=== PATIENT | female | born 1980 | race Caucasian/White ===

== ENCOUNTER 2018-07-14 09:48 | Emergency (ER) | payer SELFPAY ==
[2018-07-14 09:53] VITALS: BP 134/84; PULSE 91; TEMP 100; BMI 34.7
--- NOTE | 2018-07-14 11:09 | PDOC ---
History of Present Illness - General Chief Complaint: Cold Symptoms Stated Complaint: FLU SYMPTOMS Time Seen by Provider: 07/14/18 10:35 History Source: Patient Exam Limitations: Clinical Condition - History of Present Illness Initial Comments: 07/14/18 11:04 Patient with no significant past medical history present with complaint of five- day history of persistent cough, nasal congestion, runny nose, headache, body aches, fever and chills. Patient also reported sore throat. Patient denies nausea, vomiting, dizziness. Patient reports taking [id number] medication with no improvement. Denies any other symptoms Timing/Duration: other (5 days) Past History - Past Medical History Allergies/Adverse Reactions: Allergies Allergy/AdvReac Type Severity Reaction Status Date / Time No Known Allergies Allergy Verified 07/14/18 09:50 Home Medications: Ambulatory Orders Ipratropium [place] 2 spray NS BID PRN #1 spray 07/14/18 Loratadine 10 mg PO DAILY #10 capsule 07/14/18 Methylprednisolone [Medrol Dose Bruno] 4 mg PO ASDIR #21 tablet 07/14/18 COPD: No - Immunization History Immunization Up to Date: Yes - Suicide/Smoking/Psychosocial Hx Smoking History: Never smoked Hx Alcohol Use: No Drug/Substance Use Hx: No Review of Systems - Review of Systems Able to Perform ROS?: Yes Is the patient limited Greek proficient: No Constitutional: Yes: Chills, Fever, Malaise HEENTM: Yes: Symptoms Reported, See HPI, Nose Congestion, Throat Pain. No: Eye Pain, Blurred Vision, Tearing, Recent change in vision, Double Vision, Cataracts , Ear Pain, Ocular Prothesis, Ear Discharge, Nose Pain, Tinnitus, Nose Bleeding , Hearing Loss, Throat Swelling, Mouth Pain, Dental Problems, Difficulty Swallowing, Mouth Swelling, Other Respiratory: Yes: Symptoms reported, See HPI, Cough. No: Orthopnea, Shortness of Breath, SOB with Exertion, SOB at Rest, Stridor, Wheezing, Productive cough, Hemoptysis, Other Cardiac (ROS): No: Symptoms Reported, See HPI, Chest Pain, Edema, Irregular Heart Rate, Lightheadedness, Palpitations, Syncope, Chest Tightness, Other ABD/GI: No: Constipated, Diarrhea, Nausea, Vomiting, Abdominal cramping Neurological: Yes: See HPI, Headache. No: Weakness, Unsteady Gait, Ataxia, Dizziness All Other Systems: Reviewed and Negative *Physical Exam - Vital Signs Last Vital Signs Temp Pulse Resp BP Pulse Ox 100.0 F H 91 H 16 134/84 98 07/14/18 09:51 07/14/18 09:51 07/14/18 09:51 07/14/18 09:51 07/14/18 09:51 - Physical Exam Comments: 07/14/18 11:05 GENERAL: Well developed, well nourished. Awake and alert. No acute distress. HEENT: Normocephalic, atraumatic. PERRLA, EOMI. No conjunctival pallor. Sclera are non-icteric. Moist mucous membranes. Oropharynx is clear. NECK: Supple. Full ROM. CARDIOVASCULAR: Regular rate and rhythm. No murmurs, rubs, or gallops. Distal pulses are 2+ and symmetric. PULMONARY: No evidence of respiratory distress. Lungs clear to auscultation bilaterally. No wheezing, rales or rhonchi. ABDOMINAL: Soft. Non-tender. Non-distended. No rebound or guarding. No organomegaly. Normoactive bowel sounds. MUSCULOSKELETAL Normal range of motion at all joints. SKIN: Warm and dry. Normal capillary refill. No rashes. No cyanosis. NEUROLOGICAL: Alert, awake, appropriate. Gait is normal without ataxia. PSYCHIATRIC: Cooperative. Good eye contact. Appropriate mood General Appearance: Yes: Nourished, Appropriately Dressed. No: Apparent Distress ED Treatment Course - RADIOLOGY Radiology Studies Ordered: Category Date Time Status CHEST PA & LAT [RAD] Stat Radiology 07/14/18 10:54 Ordered Medical Decision Making - Medical Decision Making 07/14/18 11:08 Patient with no significant past medical history present with complaint of five- day history of URI symptoms with persistent dry cough, fever, chills and body aches and sore throat. Clinical exam unremarkable except temp of 100.0F orally. Rapid strep, rapid flu and chest x-ray ordered. Treat Baed on lab and imaging results. Symptoms likely viral URI versus strep 07/14/18 11:20 CXR shows no acute infiltrate or pathology. Rapid flu and strep still pending 07/14/18 12:05 rapid flu and strep negative. Patient stable for outpatient management of viral URI *DC/Admit/Observation/Transfer Diagnosis at time of Disposition: Cough URI (upper respiratory infection) Qualifiers: URI type: unspecified viral URI Qualified Code(s): J06.9 - Acute upper respiratory infection, unspecified Pharyngitis Qualifiers: Pharyngitis/tonsillitis etiology: unspecified etiology Qualified Code(s): J02.9 - Acute pharyngitis, unspecified - Discharge Dispostion Disposition: HOME Condition at time of disposition: Stable Decision to Admit order: No - Prescriptions Prescriptions: Ipratropium [place] 2 spray NS BID PRN #1 spray PRN Reason: nasal congestion Loratadine 10 mg PO DAILY #10 capsule Methylprednisolone [Medrol Dose Bruno] 4 mg PO ASDIR #21 tablet - Referrals - Patient Instructions Printed Discharge Instructions: DI for Viral Upper Respiratory Infection -- Adult Additional Instructions: Take medications as prescribed, increase fluid intake. Follow-up with PCP as needed - Post Discharge Activity Forms/Work/School Notes: Back to Work
== END 2018-07-14 11:59 | disposition home or self-care (01) ==
LOC: JER 09:48 → JERFT 09:48
DX: J02.9 Acute pharyngitis, unspecified (principal); J06.9 Acute upper respiratory infection, unspecified
CPT/HCPCS: 71046-TC-FY; 87070; 87804; 87880; 99281-25